=== PATIENT | male | born 1965 | race Caucasian/White ===

== ENCOUNTER → 2020-08-27 | Day surgery (SDC) | payer BC ==
[2020-08-22 15:00] VITALS: BMI 38.0
[~2020-08-27] MED LIST: LACTATED RINGERS 1,000 ML IV SCH; PROPOFOL 10 MG/ML 20 ML VIAL IV ONE; SODIUM CHLORIDE 0.9% 1,000 ML IV SCH
[2020-08-27 08:48] LABS: African American GFR (CKD) >90 (>60 ml/min/1.73 sqM); Anion Gap 7 mmol/L; Blood Urea Nitrogen 20 mg/dL (9-20); Calcium 9.1 mg/dL (8.4-10.2); Carbon Dioxide 23 mmol/L (22-30); Chloride 110 mmol/L (98-107); Glucose 115 mg/dL (74-99); Non-African American GFR(CKD) >90 (>60 ml/min/1.73 sqM); Sodium 140 mmol/L (137-145)
[2020-08-27 08:50] LABS: Potassium 4.9 mmol/L (3.5-5.1)
[2020-08-27] MEDS: BENZOCAINE SPRAY 1 CAN MUCOUS MEM ONE ×2 (09:35→09:40)
[2020-08-27 09:59] VITALS: TEMP 98
[2020-08-27 10:11] VITALS: RESP 16
--- NOTE | 2020-08-27 10:31 | ECHOT ---
TRANSESOPHAGEAL ECHOCARDIOGRAM INDICATION: Persistent atrial fibrillation. CHRIS: After obtaining informed consent, transesophageal echocardiogram is performed via the left lateral position using an omniplane probe. Local and IV sedation were obtained by the flatwork supervisor. We obtained color Doppler and 2-D images. Patient tolerated the procedure well without any obvious immediate complications. FINDINGS: 1. There is no intracardiac thrombus within the left atrial appendage, left atrium, right atrium, right ventricle. 2. Left ventricle has normal size and systolic function. 3. Mitral valve is anatomically normal. There is mild to moderate central mitral regurgitation noted. Tricuspid valve appears normal. 4. Right atrium and right ventricle have normal size. 5. Interatrial septum, there is no evidence of tuop-it-jnqry shunt by color-flow Doppler or svdgk-tu-bzlq shunt by agitated saline contrast study. Aorta is free of significant atherosclerosis. CONCLUSION: No intracardiac thrombus. PLAN: Will proceed with cardioversion. CARDIOVERSION: INDICATION: Persistent atrial fibrillation. This is a 55-year-old gentleman with persistent atrial fibrillation, who is currently on flecainide and Eliquis and was advised to undergo cardioversion. We performed a CHRIS, did not document any evidence of intracardiac thrombus. Following we made three attempts at cardioversion, initially with 300 joules subsequently with two 360 joules of synchronized DC current. We were unable to convert him to sinus rhythm. Patient will be continued on current medications and will consider referral to EP for ablation. MMODL / IJN: [id number] /
[2020-08-27 11:25] VITALS: BP 131/82; PULSE 80
== END ==
LOC: CATHCVL 07:42
PROVIDERS: ATTEND Internal Medicine Cardiovascular Disease
DX: I48.19 Other persistent atrial fibrillation (principal); I34.0 Nonrheumatic mitral (valve) insufficiency; Z79.899 Other long term (current) drug therapy; Z79.01 Long term (current) use of anticoagulants; Z87.891 Personal history of nicotine dependence
CPT/HCPCS: 93312; 93320; 93325; 92960; 80048; 87635; J2704

== ENCOUNTER → 2020-10-02 | Outpatient (CLI) | payer BC | END | disposition home or self-care (01) | LOC: LABWHC1 13:24 | PROVIDERS: ATTEND Internal Medicine Cardiovascular Disease | DX: U07.1 COVID-19 (principal) | CPT/HCPCS: U0003; C9803 ==

== ENCOUNTER 2021-01-07 07:57 | Day surgery (SDC) | payer BC ==
[2021-01-03 10:48] VITALS: BMI 38.0
[~2021-01-07 07:57] MED LIST changes: +LIDOCAINE 1% (10MG/ML) FOR IV START INTRADERMA PRN; -PROPOFOL 10 MG/ML 20 ML VIAL IV ONE
[2021-01-07 08:21] VITALS: TEMP 97
[2021-01-07] MEDS ORDERED: LIDOCAINE 1% INJ 10MG/ML (20 ML MDV) ONE (08:52)
[2021-01-07] MEDS ORDERED: MIDAZOLAM 2 MG/2 ML VIAL ONE (08:52)
[2021-01-07] MEDS ORDERED: PROPOFOL 10 MG/ML 20 ML VIAL IV ONE (08:52)
[2021-01-07 08:53] LABS: African American GFR (CKD) >90 (>60 ml/min/1.73 sqM); Anion Gap 9 mmol/L; Blood Urea Nitrogen 17 mg/dL (9-20); Carbon Dioxide 26 mmol/L (22-30); Chloride 106 mmol/L (98-107); Glucose 102 mg/dL (74-99); Non-African American GFR(CKD) >90 (>60 ml/min/1.73 sqM); Sodium 141 mmol/L (137-145)
[2021-01-07 08:57] LABS: Calcium 9.1 mg/dL (8.4-10.2); Potassium 4.1 mmol/L (3.5-5.1)
[2021-01-07] MEDS ORDERED: BENZOCAINE SPRAY 1 CAN TOPICAL ONE (09:00)
[2021-01-07 10:09] VITALS: RESP 16
[2021-01-07 10:52] VITALS: BP 120/65; PULSE 70
[2021-01-07] MEDS ORDERED: SODIUM CHLORIDE 0.9% 1,000 ML IV SCH (11:15)
--- NOTE | 2021-01-07 14:51 | CE ---
CARDIAC ELECTROPHYSIOLOGY REPORT CARDIOVERSION PROCEDURE NOTE: INDICATION: Persistent atrial fibrillation. PROCEDURE: After obtaining informed consent, the patient underwent cardioversion and converted to sinus rhythm following a single synchronized shock of 300 joules. The patient is adequately anticoagulated with Eliquis and we have verified the patient does not have intracardiac thrombus with a transesophageal echo. AGGIE / IVAN: [id number] /
--- NOTE | 2021-01-08 08:17 | ECHOT ---
TRANSESOPHAGEAL ECHOCARDIOGRAM INDICATION: Persistent atrial fibrillation. PROCEDURE NOTE: After obtaining informed consent, transesophageal echocardiogram was performed in left lateral position using an Omniplane probe. Local and IV sedation were obtained by the tube worker. Patient tolerated the procedure well without any obvious immediate complications. Color Doppler 2-D evaluation was performed. FINDINGS: 1. Left atrial appendage: There is no intracardiac thrombus. 2. There is no thrombus in the left atrium, right atrium, right ventricle or left ventricle. 3. Left ventricle has normal size and systolic function. 4. Left atrium appears mildly enlarged. 5. Right atrium and right ventricle are within normal limits. 6. Mitral valve is anatomically normal. There is moderate central mitral regurgitation noted. 7. There is mild tricuspid regurgitation noted. 8. Aortic valve is a 3-leaflet valve. There is mild aortic regurgitation noted. 9. There is no evidence of interatrial septum. There is no evidence of iawj-lh-kbzyb shunt by color-flow Doppler or czelp-ri-acia shunt by agitated saline contrast study. CONCLUSION: No intracardiac thrombus. PLAN: Patient will proceed with cardioversion. MMODL / IJN: [id number] /
--- NOTE | 2021-01-09 10:37 | CDI ---
Outpatient Documentation Clarification Form Date: 01/09/21 CDS/Coding Name: Farnaz Gray Phone: If any questions, call Radha Mckeon Sugar Chipper Machine Operator at [phone] Patient Name: Emerson Nicolas Admit Date: 01/07/21 Discharge: 01/07/21 ATTENTION: The [facility] Coding Staff appreciate your assistance in clarifying documentation. Please respond to the clarification below the line at the bottom and electronically sign. The [facility] Coding Staff will review the response and follow-up if needed. Please note: Queries are made part of the legal Health Records. If you have any questions, please contact the Sugar Chipper Machine Operator. Dear Dr. Kent, Please provide clarification as to which portions of the of the CHRIS were performed. Charges on the account are: 92671 - Echocardiography,transesophageal, real time with imagine documentation (2D) (with our without M-mode recording_, including probe placement , image acquisition, interpretation and report [id number] - Doppler echocardiography, pulsed wave and/or continuous wave with spectral display, complete 16099 - Doppler echocardiography color flow velocity mapping Please clarify which or if all parts of the test were performed. Thank you for your kind consideration. [id number] [facility]
== END 2021-01-07 10:49 | disposition home or self-care (01) ==
LOC: CATHCVL 07:57
PROVIDERS: ATTEND Internal Medicine Cardiovascular Disease
DX: I48.19 Other persistent atrial fibrillation (principal); Z86.16 Personal history of COVID-19; I10 Essential (primary) hypertension; Z87.891 Personal history of nicotine dependence; Z79.01 Long term (current) use of anticoagulants; Z79.899 Other long term (current) drug therapy
CPT/HCPCS: 93312; 93320; 93005; 93325; 92960; 80048; J2250; J2001; J2704

== ENCOUNTER 2022-03-06 12:25 | Emergency (ER) | payer BC ==
[2022-03-06 12:37] VITALS: TEMP 98.1
[2022-03-06] MEDS ORDERED: DIPH,PERTUS(ACELL)TETVAC-LF 0.5 ML VIAL IM ONE (13:26)
[2022-03-06] MEDS ORDERED: ACETAMINOPHEN TAB 500 MG TAB PO STA (13:30)
--- NOTE | 2022-03-06 13:36 | ED ---
Skin/Abscess/FB HPI - General Chief complaint: Skin/Abscess/Foreign Body Stated complaint: Dog Bite Time Seen by Provider: 03/06/22 13:25 Source: patient, RN notes reviewed, old records reviewed Mode of arrival: ambulatory Limitations: no limitations - History of Present Illness Initial comments: 56-year-old male presents to the emergency room after being bitten by a friend's dog to his right hand less than 2 hours ago. He is unsure of the pets vaccination status. Patient did wash the wound at home. He is unsure of his tetanus status. He does have a history of atrial fibrillation and on eliquis. complaint: other (dog bite) -: hour(s) (2) Tetanus Up to Date: unsure Quality: dull Associated symptoms: denies other symptoms Treatments Prior to Arrival: other (washed at home) - Related Data Home Medications Medication Instructions Recorded Confirmed Apixaban [Eliquis] 5 mg PO BID 08/22/20 01/07/21 Flecainide Acetate [Tambocor] 100 mg PO Q12HR 08/22/20 01/07/21 Metoprolol Succinate [Toprol XL] 50 mg PO DAILY 08/22/20 01/07/21 Previous Rx's Medication Instructions Recorded Amoxicillin/Potassium Clav 1 tab PO Q12HR 7 Days #14 tab 03/06/22 [Augmentin 875-125 Tablet] Allergies Allergy/AdvReac Type Severity Reaction Status Date / Time No Known Allergies Allergy Verified 01/03/21 10:46 Review of Systems ROS Statement: Those systems with pertinent positive or pertinent negative responses have been documented in the HPI. ROS Other: All systems not noted in ROS Statement are negative. Past Medical History Past Medical History: Atrial Fibrillation Additional Past Medical History / Comment(s): HX RUPTURED APPENDIX/PERFORATED BOWEL. History of Any Multi-Drug Resistant Organisms: None Reported Past Surgical History: Appendectomy, Bowel Resection Additional Past Surgical History / Comment(s): BOWEL RESECTION WITH COLOSTOMY AND LATER REVERSAL,. COLONOSCOPY. Past Anesthesia/Blood Transfusion Reactions: No Reported Reaction Past Psychological History: No Psychological Hx Reported Smoking Status: Former smoker Past Alcohol Use History: None Reported Past Drug Use History: None Reported - Past Family History Mother Family Medical History: No Reported History General Exam Limitations: no limitations General appearance: alert, in no apparent distress Respiratory exam: Absent: respiratory distress, accessory muscle use Cardiovascular Exam: Present: tachycardia Extremities exam: Present: normal capillary refill Right Hand Wrist exam: Present: full ROM, tenderness, laceration, other (laceration 1cm web space between first and second digit) Neurological exam: Present: alert, oriented X3, normal gait Psychiatric exam: Present: normal affect, normal mood Skin exam: Present: warm, dry, normal color. Absent: cyanosis, diaphoretic Course Vital Signs 03/06/22 03/06/22 12:33 14:01 Temperature 98.1 F Pulse Rate 114 H 83 Respiratory 18 16 Rate Blood Pressure 158/107 169/112 O2 Sat by Pulse 96 96 Oximetry Procedures - Laceration Laceration #1 Indication: other (dog bite laceration) Site: hand Size (cm): 1 Description: linear Depth: simple, single layer Pre-repair: irrigated extensively Type of Sutures: nylon Size of Sutures: 5-0 Number of Sutures: 1 Technique: simple, interrupted Patient Tolerated Procedure: well, no complications Medical Decision Making - Medical Decision Making Patient was bitten by a friend's dog today. Wound was irrigated and soaked by a nurse. Tetanus shot was updated this visit. X-ray was performed negative for fracture. One suture was loosely placed to approximate the laceration within the web spacing of first and second digit. He does have full range of motion of the hand with flexion and extension. Patient was started on antibiotics in the emergency room. Patient's blood pressure is elevated at this visit. He has no history of hy pertension. At discharge blood pressure was assessed by myself at 168/109. He was directed to follow up with his primary care doctor regarding hypertension as this may be related to pain. Patient states that he does see his doctor every 4 months and has not been told he has hypertension. Instructed to follow-up with ortho and return to the emergency room with any new or concerning symptoms including fever, increased pain, swelling or redness. Disposition Clinical Impression: Dog bite, Laceration Disposition: HOME SELF-CARE Condition: Good Instructions (If sedation given, give patient instructions): Animal Bite (ED) Additional Instructions: Keep wound clean and use bacitracin twice a day in addition to taking your antibiotics as prescribed. Avoid soaking the wound and do not wrap the bandage to tightly. Keep hand elevated and use Tylenol as needed for any pain. Follow- up with primary care or hand surgeon in the next 10 days for suture removal. Also discuss with your doctor your elevated blood pressure today. Return to the emergency room with any new or concerning symptoms including increased redness, fever or pain. Have the animal monitored for the next 10 days. A report has been filed with the health department regarding the dog bite on your behalf. . Prescriptions: Amoxicillin/Potassium Clav [Augmentin 875-125 Tablet] 1 tab PO Q12HR 7 Days #14 tab Is patient prescribed a controlled substance at d/c from ED?: No Referrals: Milo Hill MD [Primary Care Provider] - 1-2 days Silva Traore DO [Doctor of Osteopathic Medicine] - 1-2 days Time of Disposition: 14:14
[2022-03-06] MEDS ORDERED: AMOXIC-POT CLAV 875-125MG 1 EACH TAB PO STA (13:57)
[2022-03-06 14:05] VITALS: BP 169/112; PULSE 83; RESP 16
--- NOTE | 2022-03-06 14:11 | XR ---
EXAMINATION TYPE: XR hand complete RT DATE OF EXAM: 03/06/2022 CLINICAL HISTORY: Puncture the heart bite injury with pain TECHNIQUE: Frontal, lateral and oblique images of the right hand are obtained. COMPARISON: None. FINDINGS: Subcutaneous foci of air consistent with puncture-type injury in the soft tissue between th e first and second metacarpals is present seen best on frontal and oblique images difficult to accura tely localize on lateral view. There is no acute fracture/dislocation evident in the right hand. The joint spaces in the right hand appear within normal limits. IMPRESSION: As above.
[2022-03-06] MEDS ORDERED: BACITRACIN OINT 1 EACH PACKET TOPICAL ONE (14:14)
== END 2022-03-06 14:42 | disposition home or self-care (01) ==
LOC: EC 12:25
DX: S61.411A Laceration without foreign body of right hand, initial encounter (principal); Z23 Encounter for immunization; I48.91 Unspecified atrial fibrillation; Z79.01 Long term (current) use of anticoagulants; Z87.891 Personal history of nicotine dependence; W54.0XXA Bitten by dog, initial encounter
CPT/HCPCS: 12001; 90471; 90715; 99283